=== PATIENT | female | born 1950 | race Caucasian/White ===

== ENCOUNTER 2016-08-18 08:56 | Emergency (ER) | payer MEDICARE, OTHER ==
[2017-01-10] MEDS ORDERED: CELEXA40 MG PO (09:05)
[2017-01-10] MEDS ORDERED: COUMADIN7.5 MG PO (09:05)
[2017-01-10] MEDS ORDERED: PENTOXIFYLLINE400 MG PO (09:06)
[2017-01-10] MEDS ORDERED: ASPIRIN CHEWABL81 MG PO (09:06)
[2017-01-10] MEDS ORDERED: PRINIVIL20 MG PO (09:06)
[2017-01-10] MEDS ORDERED: LOVENOX80 MG/0.8 SQ (09:07)
[2017-01-10] MEDS ORDERED: COUMADIN5 MG PO (09:09)
== END 2016-08-18 10:27 | disposition home or self-care (01) ==
LOC: FER 08:56
DX: I73.9 Peripheral vascular disease, unspecified (principal); I10 Essential (primary) hypertension; R26.2 Difficulty in walking, not elsewhere classified; F17.210 Nicotine dependence, cigarettes, uncomplicated; Z79.899 Other long term (current) drug therapy
CPT/HCPCS: 99283